=== PATIENT | female | born 1965 | race Caucasian/White ===

== ENCOUNTER 2018-10-13 02:23 | Inpatient (IN) | payer OTHER ==
[2018-10-13 03:52] LABS: Absolute Lymphocytes (CBC) 1.3 K/uL (0.7-4.9); Absolute Monocytes 0.8 K/uL (0.1-1.3); Absolute Neutrophil 22.4 K/uL (1.8-8.0); Basophils % 0.5 % (0-1.3); Eosinophils % 0.2 % (0-4.4); Hematocrit 44.9 % (36.0-45.0); Lymphocytes % 5.4 % (15.3-44.8); MPV 9.8 fL (7.6-11.3); Monocytes % 3.1 % (3.3-12.3); RBC Red Blood Cell Count 4.98 M/uL (3.86-4.86)
[2018-10-13 03:53] LABS: Protime INR 1.17
[2018-10-13] MEDS ORDERED: ACETAMINOPHEN 500 MG TAB ONE ×2 (03:59→17:19)
[2018-10-13] MEDS ORDERED: NA CHLORIDE 0.9% 1,000 ML ONE ×2 (03:59→12:46)
[2018-10-13 04:10] LABS: ALT/SGPT 99 U/L (12-78); AST/SGOT 89 U/L (15-37); Albumin 3.2 g/dL (3.4-5.0); Alkaline Phosphatase 216 U/L (45-117); BUN Blood Urea Nitrogen 13 mg/dL (7-18); Bicarbonate 28 mmol/L (21-32); Bilirubin Direct 0.2 mg/dL (0-0.2); Bilirubin Total 0.4 mg/dL (0.2-1.0); Creatine Phosphokinase 60 U/L (26-192); Glucose Level 181 mg/dL (74-106); Lipase 194 U/L (73-393); Potassium 3.6 mmol/L (3.5-5.1); Protein, Total 7.1 g/dL (6.4-8.2); Sodium Level 143 mmol/L (136-145); Troponin (Emerg Dept Use Only) < 0.02 ng/mL (0.0-0.045)
[2018-10-13 04:54] LABS: Urine Bacteria <20 /HPF (<20); Urine Culture Reflex Order REFLEXED; Urine RBC NONE SEEN /HPF (NONE SEEN)
[2018-10-13 04:55] LABS: Urine Blood NEGATIVE (NEG); Urine Glucose 3+ (NEG); Urine Protein TRACE (NEG); Urine Specific Gravity 1.015 (1.005-1.030)
[2018-10-13 05:39] LABS: Blood Morphology Comment NOT SEEN (NOT SEEN); Platelet Estimate DECR
[2018-10-13] MEDS ORDERED: CEFOXITIN/SWI 1gm 0 GM/0 ML SYR ONE (05:46)
[2018-10-13] MEDS ORDERED: NA CHLORIDE 0.9% 100 ML IV ONE (05:47)
[2018-10-13] MEDS ORDERED: CEFEPIME 2 GM VIAL ONE (05:47)
[2018-10-13] MEDS ORDERED: ONDANSETRON 4 MG/2 ML VIAL IV PRN (05:50)
[2018-10-13] MEDS ORDERED: ACETAMINOPHEN 500 MG TAB PO PRN (05:50)
[2018-10-13] MEDS ORDERED: ALBUTEROL 2.5 MG/3 ML NEB SOL NEB PRN (05:50)
[2018-10-13] MEDS ORDERED: IPRATROPIUM BROM 0.5MG/2.5ML NEB PRN (05:50)
--- NOTE | 2018-10-13 05:52 | ER ---
Nurse's Notes [facility] Name: Tahmina Naranjo Age: 53 yrs Sex: Female : 1965 Arrival Date: 10/13/2018 Time: 02:28 Bed 19 Private MD: Diagnosis: Fever presenting with conditions classified elsewhere;Sepsis, unspecified organism Presentation: 10/13 02:46 Presenting complaint: Patient states: I had my chemotherapy yesterday and I started to ed1 spike a fever and they sent me to the ER at [facility]. They manuela some blood, took urine, and did a chest x-ray. They gave me Tylenol and steroids and then sent me home. Tonight I woke up because I felt really hot and I had chills. Transition of care: patient was not received from another setting of care. Onset of symptoms was October 12, 2018. Risk Assessment: Do you want to hurt yourself or someone else? Patient reports no desire to harm self or others. Initial Sepsis Screen: Does the patient meet any 2 criteria? No. Patient's initial sepsis screen is negative. Does the patient have a suspected source of infection? No. Patient's initial sepsis screen is negative. Care prior to arrival: None. 02:46 Method Of Arrival: Ambulatory ed1 02:46 Acuity: RISSA 3 ed1 Triage Assessment: 02:56 General: Appears uncomfortable, Behavior is calm, cooperative, Reports chills for 12-24 ed1 hours, fever for 12-24 hours. Pain: Denies pain. EENT: No signs and/or symptoms were reported regarding the EENT system. Neuro: Level of Consciousness is awake, alert, obeys commands, Oriented to person, place, time, situation. Cardiovascular: Denies chest pain, Heart tones S1 S2 present. Respiratory: Reports shortness of breath Airway is patent Respiratory effort is even, unlabored, Respiratory pattern is regular, symmetrical, Breath sounds are clear bilaterally. GI: No signs and/or symptoms were reported involving the gastrointestinal system. : No signs and/or symptoms were reported regarding the genitourinary system. Derm: Skin is intact, is healthy with good turgor, Skin is dry, Skin is normal, Skin temperature is warm. Musculoskeletal: Circulation, motion, and sensation intact. Range of motion: intact in all extremities. 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 - Social history:: Smoking status: Patient/guardian denies using tobacco. - Ebola Screening: : Patient negative for fever greater than or equal to 101.5 degrees Fahrenheit, and additional compatible Ebola Virus Disease symptoms Patient denies exposure to infectious person Patient denies travel to an Ebola-affected area in the 21 days before illness onset No symptoms or risks identified at this time. Screenin:58 Abuse screen: Denies threats or abuse. Denies injuries from another. Nutritional ed1 screening: No deficits noted. Tuberculosis screening: No symptoms or risk factors identified. Fall Risk None identified. Assessment: 02:58 General: See triage assessment. ed1 05:46 Reassessment: Patient appears in no apparent distress at this time. Patient and/or ed1 family updated on plan of care and expected duration. Pain level reassessed. Patient is alert, oriented x 3, equal unlabored respirations, skin warm/dry/pink. Patient denies pain at this time. Patient states feeling better. Patient states symptoms have improved. 07:30 Reassessment: Patient appears in no apparent distress at this time. Patient and/or ph family updated on plan of care and expected duration. Pain level reassessed. Patient is alert, oriented x 3, equal unlabored respirations, skin warm/dry/pink. Pt resting quietly, awaiting room assignment, VSS. 08:30 Reassessment: Patient appears in no apparent distress at this time. No changes from ph previously documented assessment. Patient and/or family updated on plan of care and expected duration. Pain level reassessed. Patient is alert, oriented x 3, equal unlabored respirations, skin warm/dry/pink. Vital Signs: 02:56 BP 114 / 58; Pulse 97; Resp 20; Temp 99.5(O); Pulse Ox 99% on R/A; Weight 81.4 kg; ed1 Height 5 ft. 3 in. (160.02 cm); Pain 0/10; 03:57 BP 129 / 73; Pulse 97; Resp 18; Pulse Ox 98% on R/A; Pain 0/10; ed1 05:46 BP 94 / 71; Pulse 95; Resp 18; Temp 99.3(O); Pulse Ox 97% on R/A; Pain 0/10; ed1 07:30 BP 98 / 67; Pulse 94; Resp 18; Pulse Ox 98% on R/A; ph 08:30 BP 96 / 72; Pulse 91; Resp 16; Pulse Ox 98% on R/A; ph 02:56 Body Mass Index 31.79 (81.40 kg, 160.02 cm) ed1 ED Course: 02:28 Patient arrived in ED. es 02:36 Teagan Martinez, RN is Primary Nurse. ed1 02:41 Anil Barragan MD is Attending Physician. gs 02:48 Triage completed. ed1 02:56 Arm band placed on. ed1 02:58 Patient has correct armband on for positive identification. Pulse ox on. NIBP on. ed1 03:20 X-ray completed. Portable x-ray completed in exam room. Patient tolerated procedure az well. 03:21 Chest Single View XRAY In Process Unspecified. EDMS 03:35 Initial lab(s) drawn, by me, sent to lab. First set of blood cultures drawn by me. fc Inserted 18 gauge 10 cm midline to left upper basilic vein on first attempt. Line with good blood return and flushes well. 03:57 Notified ED physician of a critical lab result(s). wbc of 24.7. fc 05:51 Pau Gonzalez MD is Hospitalizing Provider. gs 07:02 Primary Nurse role handed off by Teagan Martinez RN ed1 08:55 No provider procedures requiring assistance completed. Patient admitted, IV remains in ph place. 09:19 Deana Lee, ANNALISA is Primary Nurse. ph Administered Medications: 03:57 Drug: Tylenol 1000 mg Route: PO; ed1 05:45 Follow up: Response: No adverse reaction; Temperature is decreased ed1 03:57 Drug: NS 0.9% 1000 ml Route: IV; Rate: 1 bolus; Site: left upper arm; ed1 05:45 Follow up: IV Status: Completed infusion; IV Intake: 1000ml ed1 05:45 Drug: Cefepime 1 grams Route: IVPB; Rate: 200 ml/hr; Infused Over: 30 mins; Site: left ed1 upper arm; 06:23 Follow up: Response: No adverse reaction; IV Status: Completed infusion; IV Intake: ed1 100ml 06:23 Drug: NS 0.9% 1000 ml Route: IV; Rate: 1 bolus; Site: left upper arm; ed1 Point of Care Testing: Blood Glucose: 03:43 Blood Glucose: 179 mg/dL; ed1 Ranges: Intake: 05:45 IV: 1000ml; Total: 1000ml. ed1 06:23 IV: 100ml; Total: 1100ml. ed1 Outcome: 05:51 Decision to Hospitalize by Provider. 08:55 Admitted to ER Hold. Please see [facility] for further documentation. 08:55 Condition: stable 08:55 Instructed on the need for admit. 18:33 Patient left the ED. aj1 Signatures: Dispatcher [employer] Jeanne Strong RN RN aj1 Rin Sy Felicia RN RN Teagan Olmstead RN RN ed1 Deana Lee RN RN Anil Barragan MD [facility]
--- NOTE | 2018-10-13 05:53 | EDPHYS ---
Physician Documentation [facility] Name: Tahmina Naranjo Age: 53 yrs Sex: Female : 1965 Arrival Date: 10/13/2018 Time: 02:28 Bed 19 Private MD: ED Physician Anil Barragan HPI: 10/13 05:39 This 53 yrs old Female presents to ER via Ambulatory with complaints of Fever.gs 05:39 Onset: The symptoms/episode began/occurred yesterday. Modifying factors: there are no gs obvious modifying factors. Associated signs and symptoms: Pertinent positives: cough. Severity of symptoms: At their worst the symptoms were moderate in the emergency department the symptoms are unchanged. The patient has experienced similar episodes in the past, a few times. The patient has been recently seen by a physician: an oncologist, yesterday. 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 - Social history:: Smoking status: Patient/guardian denies using tobacco. - Ebola Screening: : Patient negative for fever greater than or equal to 101.5 degrees Fahrenheit, and additional compatible Ebola Virus Disease symptoms Patient denies exposure to infectious person Patient denies travel to an Ebola-affected area in the 21 days before illness onset No symptoms or risks identified at this time. ROS: 05:39 All other systems are negative. gs Exam: 05:39 Head/Face: Normocephalic, atraumatic. Eyes: Pupils equal round and reactive to light, gs extra-ocular motions intact. Lids and lashes normal. Conjunctiva and sclera are non-icteric and not injected. Cornea within normal limits. Periorbital areas with no swelling, redness, or edema. ENT: Nares patent. No nasal discharge, no septal abnormalities noted. Tympanic membranes are normal and external auditory canals are clear. Oropharynx with no redness, swelling, or masses, exudates, or evidence of obstruction, uvula midline. Mucous membranes moist. Neck: Trachea midline, no thyromegaly or masses palpated, and no cervical lymphadenopathy. Supple, full range of motion without nuchal rigidity, or vertebral point tenderness. No Meningismus. Chest/axilla: Normal chest wall appearance and motion. Nontender with no deformity. No lesions are appreciated. 05:39 Respiratory: Lungs have equal breath sounds bilaterally, clear to auscultation and percussion. No rales, rhonchi or wheezes noted. No increased work of breathing, no retractions or nasal flaring. Abdomen/GI: Soft, non-tender, with normal bowel sounds. No distension or tympany. No guarding or rebound. No evidence of tenderness throughout. Back: No spinal tenderness. No costovertebral tenderness. Full range of motion. Skin: Warm, dry with normal turgor. Normal color with no rashes, no lesions, and no evidence of cellulitis. MS/ Extremity: Pulses equal, no cyanosis. Neurovascular intact. Full, normal range of motion. Neuro: Awake and alert, GCS 15, oriented to person, place, time, and situation. Cranial nerves II-XII grossly intact. Motor strength 5/5 in all extremities. Sensory grossly intact. Cerebellar exam normal. Normal gait. 05:39 Constitutional: The patient appears alert, awake, uncomfortable. 05:39 Cardiovascular: Rate: tachycardic, Rhythm: regular, Pulses: no pulse deficits are appreciated. 05:39 ECG was reviewed by the Attending Physician. Vital Signs: 02:56 BP 114 / 58; Pulse 97; Resp 20; Temp 99.5(O); Pulse Ox 99% on R/A; Weight 81.4 kg; ed1 Height 5 ft. 3 in. (160.02 cm); Pain 0/10; 03:57 BP 129 / 73; Pulse 97; Resp 18; Pulse Ox 98% on R/A; Pain 0/10; ed1 05:46 BP 94 / 71; Pulse 95; Resp 18; Temp 99.3(O); Pulse Ox 97% on R/A; Pain 0/10; ed1 07:30 BP 98 / 67; Pulse 94; Resp 18; Pulse Ox 98% on R/A; ph 08:30 BP 96 / 72; Pulse 91; Resp 16; Pulse Ox 98% on R/A; ph 02:56 Body Mass Index 31.79 (81.40 kg, 160.02 cm) ed1 MDM: 02:54 Patient medically screened. gs 05:39 Differential diagnosis: viral Infection, bacterial infection, URI, sepsis. Data gs reviewed: vital signs, nurses notes. Counseling: I had a detailed discussion with the patient and/or guardian regarding: the historical points, exam findings, and any diagnostic results supporting the discharge/admit diagnosis, lab results, radiology results, the need for further work-up and treatment in the hospital. Response to treatment: the patient's symptoms have mildly improved after treatment, and as a result, I will admit patient. ED course: SPOKE TO DR MAURO BAIN SAYS KEEP PT AT [facility] CAN TRANSFER LATER TODAY IF REQUIRED. 10/13 03:03 Order name: Basic Metabolic Panel; Complete Time: 04:38 10/13 03:03 Order name: Blood Culture Adult (2) 10/13 03:03 Order name: CBC with Diff; Complete Time: 05:52 10/13 03:03 Order name: CPK; Complete Time: 04:38 10/13 03:03 Order name: Lactate; Complete Time: 04:38 10/13 03:03 Order name: LFT's; Complete Time: 04:38 10/13 03:03 Order name: Lipase; Complete Time: 04:38 10/13 03:03 Order name: Procalcitonin; Complete Time: 05:05 10/13 03:03 Order name: Protime (+inr); Complete Time: 04:38 10/13 03:03 Order name: Troponin (emerg Dept Use Only); Complete Time: 04:38 10/13 03:03 Order name: Urine Microscopic Only; Complete Time: 05:05 10/13 03:03 Order name: Flu; Complete Time: 04:38 10/13 03:57 Order name: Urine Dipstick--Ancillary (enter results); Complete Time: 05:05 mw2 10/13 03:58 Order name: Manual Differential; Complete Time: 05:52 EDMS 10/13 03:03 Order name: Chest Single View XRAY 10/13 03:03 Order name: Accucheck; Complete Time: 03:44 gs 10/13 03:03 Order name: Cardiac monitoring; Complete Time: 03:30 10/13 03:03 Order name: EKG - Nurse/Tech; Complete Time: 03:44 gs 10/13 03:03 Order name: IV Saline Lock - Large Bore; Complete Time: 03:44 gs 10/13 03:03 Order name: Labs collected and sent; Complete Time: 03:44 gs 10/13 03:03 Order name: O2 Per Protocol; Complete Time: 03:30 10/13 04:55 Order name: Urine Culture EDVA 10/13 05:56 Order name: Regular EDVA 10/13 05:56 Order name: Procalcitonin EDVA 10/13 12:20 Order name: Glucose, Ancillary Testing EDMS 10/13 12:20 Order name: Glucose, Ancillary Testing EDMS 10/13 03:03 Order name: O2 Sat Monitoring; Complete Time: 03:30 10/13 03:03 Order name: Urine Dipstick-Ancillary (obtain specimen); Complete Time: 03:59 gs EC:39 Rate is 98 beats/min. Rhythm is regular. MI interval is normal. QRS interval is normal. gs QT interval is normal. T waves are Normal. No ST changes noted. Clinical impression: Abnormal EKG without significant change. Interpreted by me. Administered Medications: 03:57 Drug: Tylenol 1000 mg Route: PO; ed1 05:45 Follow up: Response: No adverse reaction; Temperature is decreased ed1 03:57 Drug: NS 0.9% 1000 ml Route: IV; Rate: 1 bolus; Site: left upper arm; ed1 05:45 Follow up: IV Status: Completed infusion; IV Intake: 1000ml ed1 05:45 Drug: Cefepime 1 grams Route: IVPB; Rate: 200 ml/hr; Infused Over: 30 mins; Site: left ed1 upper arm; 06:23 Follow up: Response: No adverse reaction; IV Status: Completed infusion; IV Intake: ed1 100ml 06:23 Drug: NS 0.9% 1000 ml Route: IV; Rate: 1 bolus; Site: left upper arm; ed1 Point of Care Testing: Blood Glucose: 03:43 Blood Glucose: 179 mg/dL; ed1 Ranges: Critical Glucose Levels:Adult <50 mg/dl or >400 mg/dl <40 mg/dl or >180 mg/dl Disposition: 10/13/18 05:51 Hospitalization ordered by Pau Gonzalez for Observation. Preliminary diagnosis are Fever presenting with conditions classified elsewhere, Sepsis, unspecified organism. - Bed requested for Telemetry/MedSurg (observation). - Status is Observation. aj1 - Condition is Stable. - Problem is new. - Symptoms have improved. UTI on Admission? Yes Critical care time excluding procedures: 05:39 Critical care time: Bedside Care: 10 minutes, Consultation: 10 minutes, Family gs Intervention: 10 minutes. Total time: 30 minutes Signatures: Dispatcher [employer] EDMS Jeanne Tang RN RN aj1 Jasmyn Morton RN ANNALISA dm5 Jocelyne Cunningham RN RN dw Riggs, Erika, RN RN ed1 Anil Barragan MD MD gs Corrections: (The following items were deleted from the chart) 08:54 05:51 Hospitalization Ordered by Pau Gonzalez MD for Observation. Preliminary dm5 diagnosis is Fever presenting with conditions classified elsewhere; Sepsis, unspecified organism. Bed requested for Telemetry/MedSurg (observation). Status is Observation. Condition is Stable. Problem is new. Symptoms have improved. UTI on Admission? Yes. gs 16:03 08:54 10/13/2018 05:51 Hospitalization Ordered by Pau Gonzalez MD for Observation. dw Preliminary diagnosis is Fever presenting with conditions classified elsewhere; Sepsis, unspecified organism. Bed requested for [facility] ER HOLD. Status is Observation. Condition is Stable. Problem is new. Symptoms have improved. UTI on Admission? Yes. dm5 18:33 16:03 10/13/2018 05:51 Hospitalization Ordered by Pau Gonzalez MD for Observation. aj1 Preliminary diagnosis is Fever presenting with conditions classified elsewhere; Sepsis, unspecified organism. Bed requested for Telemetry/MedSurg (observation). Status is Observation. Condition is Stable. Problem is new. Symptoms have improved. UTI on Admission? Yes. dw
--- NOTE | 2018-10-13 06:35 | RAD REPORT ---
EXAM DESCRIPTION: Brandi Single View10/13/2018 3:21 am CLINICAL HISTORY: fever COMPARISON: none FINDINGS: The lungs appear clear of acute infiltrate. The heart is normal size IMPRESSION: No acute abnormalities displayed
[2018-10-13] MEDS ORDERED: ENOXAPARIN 40 MG/0.4 ML SQ SCH (09:00)
--- NOTE | 2018-10-13 09:12 | P.HP ---
Certification for Inpatient Patient admitted to: Inpatient With expected LOS: >2 Midnights Patient will require the following post-hospital care: None Practitioner: I am a practitioner with admitting privileges, knowledge of patient current condition, hospital course, and medical plan of care. Services: Services provided to patient in accordance with Admission requirements found in Title 42 Section 412.3 of the Code of Federal Regulations Patient History Date of Service: 10/13/18 Reason for admission: Fever with leukocytosis History of Present Illness: Patient is a 53-year-old female came to the hospital with fevers. She has been running fever since yesterday why she was getting chemotherapy. She has throat cancer-squamous cell carcinoma and has been on her 1st round of chemotherapy. During her chemotherapy yesterday she spiked a temp of a 102. She had rigors and shakes. She was sent to [facility]'s emergency room. She was discharged after treatment with antibiotics and steroids. She received a total of 100 mg of hydrocortisone IV. She was discharged home as she was feeling better. She did well up until 2 this morning when she had another temperature of a 101. She had similar symptoms with shakes and chills and she came into the hospital at that time. Her white count was greater than 25,000. She had a significant bandemia. No source of the fever. Blood cultures are pending. She will be admitted to the hospital for further evaluation. She has been given Neulasta a couple weeks ago. This may also contribute to the elevated white blood cell count. Allergies No Known Allergies Allergy (Unverified 10/13/18 07:39) - Past Medical/Surgical History -: Throat cancer-squamous cell carcinoma Past Surgical History: Patient denies surgical history - Family History Father Family History: Reviewed- Non-Contributory - Social History Smoking Status: Never smoker Alcohol use: No CD- Drugs: No Review of Systems 10-point ROS is otherwise unremarkable Physical Examination - Vital Signs Temperature: 100.1 F Blood Pressure: 140/70 Pulse: 80 Respirations: 16 Pulse Ox (%): 96 - Physical Exam General: Alert, In no apparent distress, Oriented x3 HEENT: Atraumatic, PERRLA, Mucous membr. moist/pink, EOMI, Sclerae nonicteric Neck: Supple, 2+ carotid pulse no bruit, No LAD, Without JVD or thyroid abnormality Respiratory: Clear to auscultation bilaterally, Normal air movement Cardiovascular: Regular rate/rhythm, Normal S1 S2, No murmurs Gastrointestinal: Normal bowel sounds, Soft and benign, Non-distended, No tenderness Musculoskeletal: No clubbing, No swelling, No tenderness Integumentary: No rashes Neurological: Normal gait, Normal speech, Normal strength at 5/5 x4 extr, Normal tone, Sensation intact, Cranial nerves 3-12 intact, Normal affect Lymphatics: No axilla or inguinal lymphadenopathy - Studies Laboratory Data (last 24 hrs) 10/13/18 03:35: PT 13.7 H, INR 1.17 10/13/18 03:35: WBC 24.7 H*, Hgb 15.8 H, Hct 44.9, Plt Count 84 L 10/13/18 03:35: Sodium 143, Potassium 3.6, BUN 13, Creatinine 0.61, Glucose 181 H, Total Bilirubin 0.4, AST 89 H, ALT 99 H, Alkaline Phosphatase 216 H, Lipase 194 Microbiology Data (last 24 hrs): 10/13/18 03:25 Nasopharnyx Influenza Type A Antigen Screen - Final 10/13/18 03:25 Nasopharnyx Influenza Type B Antigen Screen - Final Assessment & Plan - Problems (Diagnosis) (1) Fever Current Visit: Yes Status: Acute (2) Leukocytosis Current Visit: Yes Status: Acute (3) Rigors Current Visit: Yes Status: Acute (4) Status post chemotherapy Current Visit: Yes Status: Acute (5) Bandemia Current Visit: Yes Status: Acute (6) History of throat cancer Current Visit: Yes Status: Acute (7) Thrombocytopenia Current Visit: Yes Status: Acute (8) Elevated procalcitonin Current Visit: Yes Status: Acute - Plan Plan: 1. Aggressive IV hydration 2. Blood cultures/panculture 3. Monitor CBC daily 4. Broad-spectrum antibiotic coverage 5. Monitor hemodynamics closely 6. Lactic acid and repeat procalcitonin level 7. GI and DVT prophylaxis Discharge Plan: Home Plan to discharge in: 48 Hours - Advance Directives Does patient have a Living Will: No Does patient have a Durable POA for Healthcare: No - Code Status/Comfort Care Code Status Assessed: Yes Code Status: Full Code Critical Care: No Time Spent Managing PTS Care (In Minutes): 45
--- NOTE | 2018-10-13 10:37 | EKG ---
Test Date: 2018-10-13 Test Time: 03:48:42 Retail Pricing Coordinator: AER MEASUREMENT RESULTS: Intervals: Rate: 98 LA: 154 QRSD: 88 QT: 322 QTc: 411 [place]: P: 47 LA: 154 QRS: -8 T: 12 INTERPRETIVE STATEMENTS: Sinus rhythm with occasional premature ventricular complexes Otherwise normal ECG Compared to ECG 03/22/2007 11:54:46 Ventricular premature complex(es) now present Electronically Signed On 10-13-18 08:13:07 CDT by Pastor Brice
[2018-10-13] MEDS: PIPER/TAZO/NS 3.375gm 3.375 GM/100 ML BAG IVPB SCH ×2 (10:45→16:49)
[2018-10-13] MEDS ORDERED: GLUCAGON 1 MG/VIAL IM PRN (12:23)
[2018-10-13] MEDS ORDERED: D50W 25 GM/50 ML SYRINGE IV PRN (12:23)
[2018-10-13] MEDS ORDERED: POTASSIUM CL SA 10 MEQ TAB PO ONE ×2 (12:42→12:55)
[2018-10-13] MEDS: NA CHLORIDE 0.9% 1,000 ML IV SCH ×2 (12:52→22:47)
[2018-10-13] MEDS: INSULIN -REGULAR HUMAN 50 UNIT/0.5 ML ML SQ SCH ×2 (16:30→21:00)
[2018-10-13] MEDS ORDERED: INSULIN -REGULAR HUMAN 50 UNIT/0.5 ML ML ONE (17:19)
[2018-10-13] MEDS: ACETAMINOPHEN 325 MG TABLET PO SCH (22:46)
[2018-10-14] MEDS: PIPER/TAZO/NS 3.375gm 3.375 GM/100 ML BAG IVPB SCH ×3 (01:41→16:24)
[2018-10-14] MEDS ORDERED: PIPER/TAZO/NS 3.375gm 3.375 GM/100 ML BAG ONE (01:45)
[2018-10-14] MEDS: ACETAMINOPHEN 325 MG TABLET PO SCH ×4 (03:24→20:44)
[2018-10-14] MEDS: LEVOTHYROXINE SOD 0.112 MG TAB PO SCH (05:17)
[2018-10-14 06:10] LABS: Absolute Lymphocytes (CBC) 1.3 K/uL (0.7-4.9); Absolute Monocytes 1.1 K/uL (0.1-1.3); Absolute Neutrophil 16.9 K/uL (1.8-8.0); Basophils % 0.5 % (0-1.3); Eosinophils % 0.3 % (0-4.4); Hematocrit 41.1 % (36.0-45.0); Lymphocytes % 6.8 % (15.3-44.8); MPV 9.8 fL (7.6-11.3); Monocytes % 5.4 % (3.3-12.3); RBC Red Blood Cell Count 4.53 M/uL (3.86-4.86)
[2018-10-14 06:22] LABS: ALT/SGPT 81 U/L (12-78); AST/SGOT 65 U/L (15-37); Albumin 2.8 g/dL (3.4-5.0); Alkaline Phosphatase 166 U/L (45-117); BUN Blood Urea Nitrogen 6 mg/dL (7-18); Bicarbonate 26 mmol/L (21-32); Bilirubin Total 0.6 mg/dL (0.2-1.0); Glucose Level 171 mg/dL (74-106); HDL Cholesterol 22 mg/dL (40-60); LDL Cholesterol, Calculated 74 (<130); Magnesium 1.9 mg/dL (1.8-2.4); Potassium 3.4 mmol/L (3.5-5.1); Protein, Total 6.6 g/dL (6.4-8.2); Sodium Level 142 mmol/L (136-145)
[2018-10-14] MEDS: INSULIN -REGULAR HUMAN 50 UNIT/0.5 ML ML SQ SCH ×4 (07:30→21:00)
[2018-10-14] MEDS: NA CHLORIDE 0.9% 1,000 ML IV SCH (08:40)
[2018-10-14] MEDS ORDERED: ENOXAPARIN 40 MG/0.4 ML SQ SCH (08:51)
[2018-10-14] MEDS ORDERED: POTASSIUM PHOS 20 MM in NA CHLORIDE 0.9% 500 ML IV ONE (09:00)
[2018-10-14] MEDS ORDERED: POTASSIUM 25 MEQ EFFERV TAB PO ONE (09:00)
[2018-10-14] MEDS: NACHLORIDE 0.45% 1,000 ML IV SCH ×2 (09:31→22:20)
--- NOTE | 2018-10-14 12:05 | P.PN ---
Subjective Date of Service: 10/14/18 Chief Complaint: Fever with leukocytosis Subjective: No new changes, Tolerating diet, Ambulating (Patient feeling better today and not as week. No fevers throughout night. WBC decreasing), Improving <Ralf Olivera - Last Filed: 10/14/18 12:01> Date of Service: 10/14/18 <Nicole Lizarragaand - Last Filed: 10/14/18 14:01> Review of Systems General: Unremarkable Eyes: Unremarkable ENT: Unremarkable Respiratory: Unremarkable Cardiovascular: Unremarkable Gastrointestinal: Unremarkable Musculoskeletal: Unremarkable Integumentary: Unremarkable Neurological: Weakness Lymphatics: Unremarkable <SamanthaRalf robles - Last Filed: 10/14/18 12:01> Physical Examination - Vital Signs Temperature: 97.3 F Blood Pressure: 125/62 Pulse: 87 Respirations: 15 Pulse Ox (%): 99 - Physical Exam General: Alert, In no apparent distress, Oriented x3, Cooperative HEENT: Normocephalic, PERRLA, Mucous membr. moist/pink Neck: Supple, JVD not distended, No Thyromegaly Respiratory: Clear to auscultation bilaterally, Normal air movement Cardiovascular: No edema, Normal pulses, Regular rate/rhythm, Normal S1 S2, No gallops, No rubs, No murmurs Capillary refill: <2 Seconds Gastrointestinal: Normal bowel sounds, Soft and benign, Non-distended, No ascites, No tenderness, No masses, No rebound, No guarding Musculoskeletal: No clubbing, No swelling, No contractures, No erythema, No tenderness, No warmth Integumentary: No rashes, No breakdown, No significant lesion, No tenderness/ swelling, No erythema, No warmth, No cyanosis Neurological: Normal speech, Normal strength at 5/5 x4 extr, Normal tone, Sensation intact, Normal reflexes 2+, Normal affect <Ralf Olivera Zan Last Filed: 10/14/18 12:01> Assessment & Plan - Problems (Diagnosis) (1) Bandemia Current Visit: Yes Status: Acute (2) Elevated procalcitonin Current Visit: Yes Status: Acute (3) Fever Current Visit: Yes Status: Acute (4) History of throat cancer Current Visit: Yes Status: Acute (5) Leukocytosis Current Visit: Yes Status: Acute Plan: Pending blood cultures. Will continue zosyn (6) Rigors Current Visit: Yes Status: Acute (7) Status post chemotherapy Current Visit: Yes Status: Acute (8) Thrombocytopenia Current Visit: Yes Status: Acute Discharge Plan: Home Plan to discharge in: 48 Hours <Ralf Olivera - Last Filed: 10/14/18 12:01> Physician Review Additional Text: Patient seen and evaluated with ORESTES Rubio. Patient improving. So far blood , urine cultures negative. Patient with recent Chemo. She plans to go back to [facility] to receive her care. Continue with IV fluids. Patient being covered with Zosyn. Monitor daily CBC and BMP. Recheck Procalcitonin tomorrow to monitor trend. Will order PT. Patient may require PT/HH at discharge. Anticipate discharge in the next 48 hours as her strength improves. Dr. Clark will take over tomorrow. Time Spent Managing Pts Care (In Minutes): 555 <Joseph Lizarraga - Last Filed: 10/14/18 14:01>
[2018-10-14] MEDS ORDERED: ALBUTEROL 2.5 MG/3 ML NEB SOL NEB PRN (14:00)
[2018-10-14] MEDS ORDERED: IPRATROPIUM BROM 0.5MG/2.5ML NEB PRN (14:00)
[2018-10-15] MEDS: PIPER/TAZO/NS 3.375gm 3.375 GM/100 ML BAG IVPB SCH ×2 (01:24→09:08)
[2018-10-15] MEDS: ACETAMINOPHEN 325 MG TABLET PO SCH ×2 (02:50→09:07)
[2018-10-15] MEDS: LEVOTHYROXINE SOD 0.112 MG TAB PO SCH (05:42)
[2018-10-15 06:32] LABS: Absolute Lymphocytes (CBC) 1.2 K/uL (0.7-4.9); Absolute Monocytes 1.1 K/uL (0.1-1.3); Absolute Neutrophil 17.2 K/uL (1.8-8.0); Basophils % 0.5 % (0-1.3); Eosinophils % 0.2 % (0-4.4); Hematocrit 40.2 % (36.0-45.0); Lymphocytes % 6.3 % (15.3-44.8); MPV 10.3 fL (7.6-11.3); Monocytes % 5.5 % (3.3-12.3); RBC Red Blood Cell Count 4.37 M/uL (3.86-4.86)
[2018-10-15 06:34] LABS: ALT/SGPT 81 U/L (12-78); AST/SGOT 58 U/L (15-37); Albumin 2.7 g/dL (3.4-5.0); Alkaline Phosphatase 161 U/L (45-117); BUN Blood Urea Nitrogen 8 mg/dL (7-18); Bicarbonate 26 mmol/L (21-32); Bilirubin Total 0.8 mg/dL (0.2-1.0); Glucose Level 172 mg/dL (74-106); Potassium 3.6 mmol/L (3.5-5.1); Protein, Total 6.9 g/dL (6.4-8.2); Sodium Level 141 mmol/L (136-145)
[2018-10-15 06:53] LABS: Phosphorus 2.4 mg/dL (2.5-4.9)
[2018-10-15] MEDS: INSULIN -REGULAR HUMAN 50 UNIT/0.5 ML ML SQ SCH ×2 (07:30→11:30)
[2018-10-15] MEDS ORDERED: POTASSIUM PHOS IN 0.9 % NACL 15 MMOL/250 ML BAG IV ONE (08:00)
[2018-10-15] MEDS ORDERED: POTASSIUM CL SA 10 MEQ TAB PO ONE (09:00)
[2018-10-15] MEDS: POTASS/SODIUM PHOSPHATE 1 PKT POWD.PACK PO SCH ×3 (09:07→11:00)
[2018-10-15] MEDS: NACHLORIDE 0.45% 1,000 ML IV SCH (11:40)
--- NOTE | 2018-10-15 17:12 | DS ---
Date of Discharge: 10/15/2018 Consultants: None. Admitting Diagnoses: 1.Fever. 2.Leukocytosis. 3.Status post chemotherapy. 4.History of throat cancer, lung chemotherapy. 5.Thrombocytopenia. 6.Elevated procalcitonin level. Discharge Diagnoses: 1.Bandemia. 2.Elevated procalcitonin level. 3.Fever. 4.History of throat cancer. 5.Leukocytosis likely steroid-induced. Hospital Course: The patient is a 53-year-old female with history of throat cancer, who spiked a fev er after getting chemotherapy. The patient was seen at [facility]'s [facility]. Discharge with treatment of antibiotics and steroids. The patient did receive 100 mg of hydrocortisone IV. She al so recently received Neulasta likely resulting in her elevated white blood cell count. The patient w as admitted for IV antibiotics. Cultures were obtained and her blood cultures did not show any growt h. Urine cultures grew out beta-hemolytic strep, which is likely contaminant. The patient did not h ave any symptoms of dysuria or hematuria. Flu screen was also negative. Chest x-ray did not show an y pneumonia. The patient did well over the course of the hospital stay. She did spike a low-grade t emperature of 100, 24 hours prior to discharge. The patient was then doing well. She did not have a ny signs of sepsis. Her procalcitonin level was trending down and was decreased to 1.36 from 4.33. The patient was then cleared for discharge and was sent to home in a stable condition on p.o. antibio tics. Followup Instructions: Follow up with primary care physician in 2-3 days. Follow up with oncologist at [facility] on Wednesday. The patient already has appointment schedule. Repeat CBC on Wednesday. R eturn to ER for worsening condition. Diet: Regular. Activity: As tolerated. Physical Examination: General: Awake, alert, and oriented x3. Obese female in no acute distress. CV: S1-S2, no murmurs. Respiratory: Moving air well bilaterally with no wheezing. Gastrointestinal: Abdomen is soft, nonte nder, nondistended. Positive bowel sounds. Extremities: No clubbing, cyanosis, or edema. Neurologic: Nonfocal. Total time spent discharging the patient was 32 minutes. /ARIANNA Voice ID: [id number] Report ID: [id number]
== END 2018-10-15 15:14 | disposition home or self-care (01) | DRG 864 ==
LOC: ER 02:23 → ERHOLD 05:50 → 2ND 18:08
PROVIDERS: ADMIT Hospitalist; ATTEND Family Medicine
DX: R50.2 Drug induced fever (principal); D72.825 Bandemia; T45.1X5A Adverse effect of antineoplastic and immunosuppressive drugs, initial encounter; Y92.019 Unspecified place in single-family (private) house as the place of occurrence of the external cause; C14.0 Malignant neoplasm of pharynx, unspecified; R79.89 Other specified abnormal findings of blood chemistry; E03.9 Hypothyroidism, unspecified; E11.9 Type 2 diabetes mellitus without complications; Z79.4 Long term (current) use of insulin; Z79.84 Long term (current) use of oral hypoglycemic drugs; D69.6 Thrombocytopenia, unspecified
CPT/HCPCS: 36415; 71045; 80048; 80053; 80061; 80076; 81003; 81015; 82550; 82962; 83605; 83690; 83735; 84100; 84132; 84145; 84484; 85025; 85610; 87040; 87077; 87086; 87088; 87186; 87804; 93005; 94760; 96361; 96365; 97161; 99285; J0692; J2543; J7030